=== PATIENT | male | born 1940 | race Caucasian/White ===

== ENCOUNTER 2020-11-05 20:14 | Emergency (ER) | payer MEDICARE ==
[2020-11-05 22:00] LABS: HEMOGLOBIN 14.2 gm/dl (14.0-17.5); RED BLOOD COUNT 4.7 M/UL (4.20-5.50); WHITE BLOOD COUNT 8.3 K/UL (4.5-11.0)
[2020-11-05 22:21] LABS: BUN/CREATININE RATIO 13 (0-10)
[2020-11-06] MEDS ORDERED: DOXYCYCLINE HY100 MG PO (01:16)
[2020-11-06] MEDS ORDERED: PREDNISONE20 MG PO (01:16)
== END 2020-11-06 01:45 | disposition home or self-care (01) ==
LOC: ER1 20:14
PROVIDERS: Family Medicine
DX: J20.9 Acute bronchitis, unspecified (principal); J44.1 Chronic obstructive pulmonary disease with (acute) exacerbation; J44.0 Chronic obstructive pulmonary disease with (acute) lower respiratory infection; I45.10 Unspecified right bundle-branch block; Z87.891 Personal history of nicotine dependence; Z20.822 Contact with and (suspected) exposure to COVID-19
CPT/HCPCS: 36600; 71045; 80053; 82550; 82553; 82803; 83874; 83880; 84484; 85025; 93005; 94664; 96374; 99285; J2930; U0002